=== PATIENT | female | born 1950 | race Caucasian/White ===

== ENCOUNTER 2021-10-22 13:25 | Inpatient (IN) | payer OTHER ==
[~2021-10-22] VITALS: Ht 160 cm; Wt 102.2 kg
[~2021-10-22 13:25] MED LIST: ATENOLOL25 M1 PO; AUGMENTIN 875-1 EACH PO; BACLOFEN10 MG PO; BENADRYL25 MG PO; BREO ELLIPTA 11 EACH INH; BUSPIRONE HCL30 MG PO; GABAPENTIN400 MG PO; MELATIN3 MG PO; METHYLPREDNISOLO4 M1 PO; NORCO 5/3251 EACH PO; OMEPRAZOLE 20MG20 MG PO; ONE DAILY MULT1 EAC1 PO; PROZAC20 MG PO; SIMVASTATIN40 MG PO; SUDAFED30 MG PO; TOPIRAMATE50 MG PO; TRAMADOL HCL50 MG PO; TRELEGY ELLIPT1 EACH INH; VENTOLIN (2.5 MG/3 M INH; VITAMIN D250000 UNIT PO; VOLTAREN **OUT75 MG PO; ZOLPIDEM 10MG T10 MG PO; [UNRECOGNIZED DRUG - OTHER] PO
[2021-10-22 14:38] LABS: BASOPHIL 0.4 % (0-2); EOSINOPHIL 4.3 % (0-7); HCT 36.1 % (37.0-47.0); HGB 11.3 g/dl (12.5-16.0); LYMPHOCYTE 15.6 % (15-48); MCH 31.1 pg (25.0-31.0); MCHC 31.3 g/dL (32.0-36.0); MCV 99.4 fL (78.0-100.0); MONOCYTE 7.4 % (0-12); MPV 9.8 fL (6.0-9.5); NEUTROPHIL 71.6 % (41-80); NRBC 0; PLT 250 K/uL (150-400); RBC 3.63 M/uL (4.20-5.40); RDW 14.6 % (11.5-14.0); WBC 9.1 K/uL (4.0-10.5)
[2021-10-22 15:27] LABS: CORONAVIRUS 2019 SARS-COV-2 NEGATIVE (NEGATIVE); INFLUENZA A NAA NEGATIVE (NEGATIVE)
[2021-10-22 15:38] LABS: LACTIC ACID 1.2 mmol/L (0.4-1.9)
[2021-10-22 16:05] LABS: ALBUMIN 2.5 g/dL (3.4-5.0); BILIRUBIN - TOTAL 0.3 mg/dL (0.2-1.0); BUN/CREAT RATIO (CALC) 26.6 RATIO; CREATININE 0.64 mg/dL (0.51-0.95); GLOBULIN (CALCULATION) 3.9 g/dL; POTASSIUM 4.1 mmol/L (3.5-5.1); TOTAL PROTEIN 6.4 g/dL (6.4-8.2)
[2021-10-22 17:19] LABS: BILIRUBIN NEGATIVE (NEGATIVE); BLOOD NEGATIVE Ery/uL (NEGATIVE); CLARITY CLEAR (CLEAR); COLOR YELLOW (YELLOW); GLUCOSE (U) NORMAL (NORMAL); LEUKOCYTES NEGATIVE Leu/uL (NEGATIVE); NITRITE NEGATIVE (NEGATIVE); PROTEIN TRACE (LOW) mg/dL (NEGATIVE); UROBILINOGEN 0.2 mg/dL (0.2-1.0); pH 5.5 (5.0-9.0)
[2021-10-22] MEDS ORDERED: ZIPSOR25 MG PO (23:44)
[2021-10-22] MEDS ORDERED: TRAZODONE 100M100 MG PO (23:46)
[2021-10-22] MEDS ORDERED: PRILOSEC20 MG PO (23:49)
[2021-10-22] MEDS ORDERED: TEGRETOL200 MG PO (23:50)
[2021-10-22] MEDS ORDERED: MYSOLINE250 MG PO (23:53)
[2021-10-22] MEDS ORDERED: NAMENDA 10MG TA10 MG PO (23:53)
[2021-10-22] MEDS ORDERED: ULTRAM50 MG PO (23:55)
[2021-10-22] MEDS ORDERED: PHENERGAN25 M1 PO (23:58)
[2021-10-23 06:38] LABS: BASOPHIL 0.2 % (0-2); EOSINOPHIL 0 % (0-7); HCT 32.1 % (37.0-47.0); HGB 9.9 g/dl (12.5-16.0); LYMPHOCYTE 15.4 % (15-48); MCH 30.7 pg (25.0-31.0); MCHC 30.8 g/dL (32.0-36.0); MCV 99.4 fL (78.0-100.0); MONOCYTE 4.6 % (0-12); MPV 9.8 fL (6.0-9.5); NEUTROPHIL 79.3 % (41-80); NRBC 0; PLT 223 K/uL (150-400); RBC 3.23 M/uL (4.20-5.40); RDW 14.6 % (11.5-14.0); WBC 6.1 K/uL (4.0-10.5)
[2021-10-23 06:40] LABS: INR 1.18 (0.9-1.2); PROTHROMBIN TIME 14.4 SECONDS (11.8-13.4)
[2021-10-23 06:55] LABS: IRON % SATURATION 6.6 %SAT (20-50)
[2021-10-23 07:27] LABS: BUN/CREAT RATIO (CALC) 25.4 RATIO; CREATININE 0.63 mg/dL (0.51-0.95); POTASSIUM 4.4 mmol/L (3.5-5.1)
--- NOTE | 2021-10-23 12:59 | NUR ---
MET WITH PT AND SPOUSE. PT REPORTED THAT SHE IS CURRENT WITH KORT TO HOME, SHE HAS HOME O2 FROM [facility]. SHE IS ON 2.5 L AT HOME. SHE HAS A RW., 10/20 AND GAIT BELT. SHE RESIDES WITH HER SPOUSE.
[2021-10-23 14:42] LABS: CREATININE 0.61 mg/dL (0.51-0.95); POTASSIUM 3.9 mmol/L (3.5-5.1)
[2021-10-24 06:11] LABS: BASOPHIL 0.3 % (0-2); EOSINOPHIL 2.4 % (0-7); HCT 33.6 % (37.0-47.0); HGB 10.3 g/dl (12.5-16.0); LYMPHOCYTE 30.2 % (15-48); MCH 30.3 pg (25.0-31.0); MCHC 30.7 g/dL (32.0-36.0); MCV 98.8 fL (78.0-100.0); MONOCYTE 7.8 % (0-12); MPV 9.7 fL (6.0-9.5); NRBC 0; PLT 245 K/uL (150-400); RDW 14.6 % (11.5-14.0); WBC 8.6 K/uL (4.0-10.5)
[2021-10-24 06:24] LABS: CREATININE 0.6 mg/dL (0.51-0.95); POTASSIUM 3.5 mmol/L (3.5-5.1)
[2021-10-24 09:32] LABS: BUN/CREAT RATIO (CALC) 21.7 RATIO; CREATININE 0.6 mg/dL (0.51-0.95); POTASSIUM 3.3 mmol/L (3.5-5.1)
[2021-10-25 05:38] LABS: BASOPHIL 0.5 % (0-2); EOSINOPHIL 3.2 % (0-7); HCT 36.3 % (37.0-47.0); HGB 10.9 g/dl (12.5-16.0); LYMPHOCYTE 34.7 % (15-48); MCH 30.5 pg (25.0-31.0); MCV 101.7 fL (78.0-100.0); MONOCYTE 8.4 % (0-12); MPV 9.4 fL (6.0-9.5); NEUTROPHIL 52.5 % (41-80); NRBC 0; PLT 262 K/uL (150-400); RBC 3.57 M/uL (4.20-5.40); RDW 14.5 % (11.5-14.0); WBC 7.4 K/uL (4.0-10.5)
[2021-10-25 05:55] LABS: CREATININE 0.72 mg/dL (0.51-0.95)
[2021-10-25 06:05] LABS: POTASSIUM 5.2 mmol/L (3.5-5.1)
[2021-10-25 08:18] LABS: BUN/CREAT RATIO (CALC) 29.4 RATIO; CREATININE 0.68 mg/dL (0.51-0.95); POTASSIUM 4.4 mmol/L (3.5-5.1)
[2021-10-25] MEDS ORDERED: FOLIC ACID1 MG PO (09:30)
[2021-10-25] MEDS ORDERED: PREDNISONE 20MG20 MG PO (09:30)
[2021-10-25] MEDS ORDERED: ELIQUIS5 MG PO (09:30)
[2021-10-25] MEDS ORDERED: TOPROL XL 25MG25 MG PO (09:30)
[2021-10-25] MEDS ORDERED: FLORANEX TABLE1 EACH PO (09:30)
[2021-10-25] MEDS ORDERED: MAG-OXIDE 400M400 MG PO (09:30)
[2021-10-25] MEDS ORDERED: LASIX20 MG PO (09:36)
[2021-10-25] MEDS ORDERED: FEOSOL325 MG PO (09:42)
== END 2021-10-25 12:20 | disposition home or self-care (01) | DRG 291 ==
LOC: FER 13:25 → FMS 17:39 → FTCU 10-24 08:04
PROVIDERS: Internal Medicine Cardiovascular Disease; Nurse Practitioner Family; ADMIT Family Medicine
DX: I11.0 Hypertensive heart disease with heart failure (principal); J96.01 Acute respiratory failure with hypoxia; I50.31 Acute diastolic (congestive) heart failure; I48.92 Unspecified atrial flutter; Z20.822 Contact with and (suspected) exposure to COVID-19; K21.9 Gastro-esophageal reflux disease without esophagitis; D64.9 Anemia, unspecified; F32.A Depression, unspecified; D50.9 Iron deficiency anemia, unspecified; F41.9 Anxiety disorder, unspecified; G25.0 Essential tremor; I27.20 Pulmonary hypertension, unspecified; F03.90 Unspecified dementia, unspecified severity, without behavioral disturbance, psychotic disturbance, mood disturbance, and anxiety; M19.90 Unspecified osteoarthritis, unspecified site; Z96.651 Presence of right artificial knee joint; Z86.73 Personal history of transient ischemic attack (TIA), and cerebral infarction without residual deficits; Z87.891 Personal history of nicotine dependence; Z90.49 Acquired absence of other specified parts of digestive tract; Z90.710 Acquired absence of both cervix and uterus; Z79.899 Other long term (current) drug therapy
CPT/HCPCS: 36415; 36600; 71045; 71275; 80048; 80053; 80061; 81003; 82607; 82803; 83036; 83540; 83550; 83605; 83880; 84145; 84443; 84484; 85025; 85379; 85610; 86140; 87040; 93005; 94010; 94640; 94762; 97162; 97166; 97530-GP; 97535; G0378; J1650; J1940; J2916; J2930; J3475; J7050; J7512; Q9967; U0002

== ENCOUNTER 2021-11-18 13:51 | Emergency (ER) | payer OTHER ==
[~2021-11-18 13:51] MED LIST changes: +ELIQUIS5 MG PO; +FEOSOL325 MG PO; +FLORANEX TABLE1 EACH PO; +FOLIC ACID1 MG PO; +LASIX20 MG PO; +MAG-OXIDE 400M400 MG PO; +MYSOLINE250 MG PO; +NAMENDA 10MG TA10 MG PO; +PHENERGAN25 M1 PO; +PREDNISONE 20MG20 MG PO; +PRILOSEC20 MG PO; +TEGRETOL200 MG PO; +TOPROL XL 25MG25 MG PO; +TRAZODONE 100M100 MG PO; +ULTRAM50 MG PO; +ZIPSOR25 MG PO
[2021-11-18 15:53] LABS: BILIRUBIN NEGATIVE (NEGATIVE); BLOOD NEGATIVE Ery/uL (NEGATIVE); CLARITY HAZY (CLEAR); COLOR YELLOW (YELLOW); GLUCOSE (U) NORMAL (NORMAL); LEUKOCYTES TRACE Leu/uL (NEGATIVE); NITRITE NEGATIVE (NEGATIVE); PROTEIN NEGATIVE (NEGATIVE); SPECIFIC GRAVITY >=1.030 (1.001-1.030); UROBILINOGEN 0.2 mg/dL (0.2-1.0)
[2021-11-18 16:04] LABS: BASOPHIL 0.4 % (0-2); EOSINOPHIL 0.7 % (0-7); HGB 13.5 g/dl (12.5-16.0); LYMPHOCYTE 9.3 % (15-48); MCH 29.9 pg (25.0-31.0); MCHC 31.4 g/dL (32.0-36.0); MCV 95.3 fL (78.0-100.0); MONOCYTE 4.2 % (0-12); MPV 10.8 fL (6.0-9.5); NEUTROPHIL 84.9 % (41-80); NRBC 0; PLT 151 K/uL (150-400); RBC 4.51 M/uL (4.20-5.40); RDW 13.5 % (11.5-14.0); WBC 11.4 K/uL (4.0-10.5)
[2021-11-18 16:10] LABS: BACTERIA 1+
[2021-11-18 16:11] LABS: AMORPHOUS URATES CRYSTALS LARGE; MUCOUS TRACE
[2021-11-18 16:18] LABS: BUN/CREAT RATIO (CALC) 30.2 RATIO; CREATININE 1.16 mg/dL (0.51-0.95)
[2021-11-18 16:30] LABS: CORONAVIRUS 2019 SARS-COV-2 NEGATIVE (NEGATIVE); INFLUENZA A NAA NEGATIVE (NEGATIVE)
[2021-11-18 17:59] LABS: HCT 37.6 % (37.0-47.0); HGB 12.1 g/dL (12.5-16.0)
[2021-11-18 18:08] LABS: INR 1.21 (0.9-1.2); PROTHROMBIN TIME 14.7 SECONDS (11.8-13.4)
[2021-11-18 18:14] LABS: BUN/CREAT RATIO (CALC) 30.8 RATIO; CREATININE 1.04 mg/dL (0.51-0.95)
[2021-11-18 18:22] LABS: POTASSIUM 4.4 mmol/L (3.5-5.1)
== END 2021-11-18 19:43 | disposition other institution (70) ==
LOC: FER 13:51
PROVIDERS: Nurse Practitioner Family
DX: S72.412A Displaced unspecified condyle fracture of lower end of left femur, initial encounter for closed fracture (principal); I11.0 Hypertensive heart disease with heart failure; I50.9 Heart failure, unspecified; Z86.73 Personal history of transient ischemic attack (TIA), and cerebral infarction without residual deficits; Z79.01 Long term (current) use of anticoagulants; Z20.822 Contact with and (suspected) exposure to COVID-19; W19.XXXA Unspecified fall, initial encounter; Y92.009 Unspecified place in unspecified non-institutional (private) residence as the place of occurrence of the external cause
CPT/HCPCS: 36415; 73552; 73564; 80048; 81001; 85014; 85018; 85025; 85610; 93005; 96374; 96375; 96376; J1170; J7030; U0002